=== PATIENT | female | born 1965 | race Hispanic/Latino ===

== ENCOUNTER → 2018-05-07 | Day surgery (SDC) | payer SELFPAY ==
[~2018-05-07] MED LIST: ACETAMINOPHEN 1000 MG/100 ML IV ONE; BUPIVACAINE 0.25% 30ML SDV INJ ONE; CEFAZOLIN SOD 1 GM/D5W 50ML 50 ML IV ONE; FENTANYL CITRATE/PF 100MCG/2 ML INJ ONE; KETOROLAC TROMETHAMINE 30 MG/ML VIAL ONE; LIDOCAINE HCL 1% LOCAL INJ 20 ML VIAL ONE; LIDOCAINE HCL 2% LOCAL INJ 5 ML SDV VIAL INJ ONE; MIDAZOLAM HCL 2 MG/2 ML VIAL ONE; MUPIROCIN 2% OINT 22 GM TUBE ONE; PROPOFOL IV EMULSION 10 MG/ML 20 ML VIAL ONE
[2018-05-07 11:40] VITALS: BP 131/74
--- NOTE | 2018-05-07 14:29 | Operative Report ---
DATE OF PROCEDURE: May 07, 2018 PREOPERATIVE DIAGNOSIS: Fracture, left ring finger, distal phalanx, intra-articular, displaced. POSTOPERATIVE DIAGNOSIS: Fracture, left ring finger, distal phalanx, intra-articular, displaced. PROCEDURE: Open reduction and pinning of left ring finger, distal phalanx fracture. ANESTHESIA: MAC/local. HISTORY: The patient is a 52-year-old right-hand dominant female who while taking an exercise boxing class sustained a closed intra-articular displaced fracture of the left ring finger on May 01, 2018. The risks, benefits and alternatives of treatment were discussed with the patient, and she is prepared to undergo the procedures outlined. DETAILS OF PROCEDURE: Patient was marked preoperatively in the holding area. She is brought to the operating theater, and after the induction of adequate IV sedation, she was prepped and draped in a supine position and a time out was performed. The procedure was begun by placing a digital block around the base of the left ring finger. A 50-50 mixture of 1% plain Xylocaine and 0.5% plain Marcaine is used. A total of 5-6 mL was placed circumferentially around the base of the ring finger. A tourniquet was then placed over the ring finger and moved down to the base exsanguinating the finger. After verifying the adequacy of the block, the incision was made through the skin and subcutaneous tissues. Venous tributaries were controlled with the bipolar cautery. Once the skin flaps were elevated off the extensor tendon mechanism, it is obvious that the displaced fragment, which is at the insertion of the extensor tendon has been displaced proximally and rotated. The fracture fragment is then released from its attachments. The joint was irrigated and small bony particulate matter was removed. At this point, under direct fluoroscopic control, the fragment is then placed in a reduce position, which was noted to recreate the articular surface without any stepoff. Holding the fragment in place, a 0.028 K-wire was then placed through the fracture fragment transfixing it to the body of the distal phalanx maintaining the alignment. Verification is done under fluoroscopic control. At this point, the pin was cut and bent over. The wound was irrigated once again with bacteriostatic saline. The soft tissues were closed with 5-0 nylon in an interrupted horizontal mattress fashion. Bactroban ointment, Xeroform gauze and a sterile dressing were applied to the finger. A foam aluminum splint was fashioned as a dorsally based splint to protect the pain, as well as maintain the DIP joint in extension. The tourniquet was removed. The finger pinked up nicely. The patient was returned to the recovery room in satisfactory condition and discharged with a postoperative instruction sheet, as well as a followup appointment. Job#: [id number]
== END | disposition home or self-care (01) ==
LOC: OR 06:27
PROVIDERS: ATTEND Plastic Surgery
DX: S62.635A Displaced fracture of distal phalanx of left ring finger, initial encounter for closed fracture (principal); Z01.810 Encounter for preprocedural cardiovascular examination
CPT/HCPCS: 26746; 93005; C1713; J0131; J0690; J1885; J2001 ×2; J2250; J2704